=== PATIENT | male | born 1990 | race Two or more races ===

== ENCOUNTER 2022-09-26 22:44 | Emergency (ER) | payer OTHER ==
[~2022-09-26] VITALS: Ht 160 cm; Wt 68.0 kg
== END 2022-09-26 23:50 | disposition home or self-care (01) ==
LOC: ER 22:44
DX: S01.81XA Laceration without foreign body of other part of head, initial encounter (principal); W45.8XXA Other foreign body or object entering through skin, initial encounter; Y93.9 Activity, unspecified; Y92.89 Other specified places as the place of occurrence of the external cause; Y99.9 Unspecified external cause status